=== PATIENT | female | born 1985 | race Caucasian/White ===

== ENCOUNTER 2019-05-26 07:05 | Emergency (ER) | payer OTHER ==
--- NOTE | 2019-05-26 08:17 | EDM.PDOC ---
ED HPI GENERAL MEDICAL PROBLEM - General Chief Complaint: Abdominal Pain Stated Complaint: TIGHTNESS IN ABDOMEN Time Seen by Provider: 05/26/19 07:35 Source of Information: Reports: Patient History Limitations: Reports: No Limitations - History of Present Illness INITIAL COMMENTS - FREE TEXT/NARRATIVE: The patient presents with tightness to the abdomen. This started about 0530 this morning. 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 She denies nausea, vomiting or diarrhea. She has no dysuria. She has a gastric sleeve. She has no fever, chills, cough, chest pain or shortness of breath. She still has her gallbladder and appendix. Onset: Gradual Duration: Hour(s): Location: Reports: Abdomen Quality: Reports: Other (tightness) Severity: Mild Improves with: Reports: None Worsens with: Reports: None Associated Symptoms: Reports: No Other Symptoms Middle Abdomen Pain Score (Numeric/FACES): 2 - Related Data Allergies Allergy/AdvReac Type Severity Reaction Status Date / Time diphenhydramine Allergy Hives Verified 05/26/19 07:34 [From Benadryl] Home Meds: Home Meds . [No Known Home Meds] 05/26/19 [History] Past Medical History HEENT History: Reports: Impaired Vision Other HEENT History: wears eyeglasses. 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 Musculoskeletal History: Reports: Fracture, Other (See Below) Other Musculoskeletal History: missing disc between L5-tailbone - Infectious Disease History Infectious Disease History: Reports: Chicken Pox - Past Surgical History HEENT Surgical History: Reports: Adenoidectomy, Tonsillectomy GI Surgical History: Reports: Bariatric Procedure Social & Family History - Tobacco Use Smoking Status *Q: Never Smoker Second Hand Smoke Exposure: No - Caffeine Use Caffeine Use: Reports: Coffee - Recreational Drug Use Recreational Drug Use: No ED ROS GENERAL - Review of Systems Review Of Systems: See Below Constitutional: Reports: No Symptoms HEENT: Reports: No Symptoms Respiratory: Reports: No Symptoms Cardiovascular: Reports: No Symptoms Endocrine: Reports: No Symptoms GI/Abdominal: Reports: Abdominal Pain. Denies: Diarrhea, Nausea, Vomiting : Reports: No Symptoms Musculoskeletal: Reports: No Symptoms ED EXAM, GI/ABD - Physical Exam Exam: See Below Exam Limited By: No Limitations General Appearance: Alert, No Apparent Distress Ears: Normal External Exam Nose: Normal Inspection Head: Atraumatic, Normocephalic Neck: Normal Inspection Respiratory/Chest: No Respiratory Distress, Lungs Clear, Normal Breath Sounds Cardiovascular: Regular Rate, Rhythm, No Edema, No Murmur GI/Abdominal Exam: Soft, No Organomegaly, No Mass, Tender (Mild tightness with palpation mostly in the left abdomen.) Course - Vital Signs Last Recorded V/S: Last Vital Signs Temp 97.4 F 05/26/19 07:36 Pulse 68 05/26/19 07:36 Resp 18 05/26/19 07:36 BP 132/76 05/26/19 07:36 Pulse Ox 100 05/26/19 07:36 - Orders/Labs/Meds Orders: Active Orders 24 hr Category Date Time Status Abdomen 2V AP Flat Upright [CR] Stat Exams 05/26/19 07:50 Taken Labs: Laboratory Tests 05/26/19 05/26/19 05/26/19 Range/Units 07:20 07:20 07:20 WBC 7.28 (3.98-10.04) K/mm3 RBC 4.72 (3.98-5.22) M/mm3 Hgb 10.9 L (11.2-15.7) gm/L Hct 36.9 (34.1-44.9) % MCV 78.2 L (79.4-94.8) fl MCH 23.1 L (25.6-32.2) pg MCHC 29.5 L (32.2-35.5) g/dl RDW Std Deviation 45.8 (36.4-46.3) fL Plt Count 393 H (182-369) K/mm3 MPV 9.9 (9.4-12.3) fl Neut % (Auto) 49.9 (34.0-71.1) % Lymph % (Auto) 40.5 (19.3-51.7) % [place] % (Auto) 8.1 (4.7-12.5) % Eos % (Auto) 1.1 (0.7-5.8) Baso % (Auto) 0.1 (0.1-1.2) % Neut # (Auto) 3.63 (1.56-6.13) K/mm3 Lymph # (Auto) 2.95 (1.18-3.74) K/mm3 [place] # (Auto) 0.59 H (0.24-0.36) K/mm3 Eos # (Auto) 0.08 (0.04-0.36) K/mm3 Baso # (Auto) 0.01 (0.01-0.08) K/mm3 Manual Slide Review Abnormal smear Sodium 140 (136-145) mEq/L Potassium 3.8 (3.5-5.1) mEq/L Chloride 105 (98-107) mEq/L Carbon Dioxide 25 (21-32) mEq/L Anion Gap 13.8 (5-15) BUN 10 (7-18) mg/dL Creatinine 0.7 (0.55-1.02) mg/dL Est Cr Clr Drug Dosing 120.58 mL/min Estimated GFR (MDRD) > 60 (>60) mL/min BUN/Creatinine Ratio 14.3 (14-18) Glucose 115 H (74-106) mg/dL Calcium 8.2 L (8.5-10.1) mg/dL Total Bilirubin 0.2 (0.2-1.0) mg/dL AST 18 (15-37) U/L ALT 17 (14-59) U/L Alkaline Phosphatase 53 (46-116) U/L Total Protein 7.1 (6.4-8.2) g/dl Albumin 3.6 (3.4-5.0) g/dl Globulin 3.5 gm/dL Albumin/Globulin Ratio 1.0 (1-2) Lipase 176 (73-393) U/L HCG, Qual Negative (NEGATIVE) Urine Color (Yellow) Urine Appearance (Clear) Urine pH (5.0-8.0) Ur Specific [place] (1.005-1.030) Urine Protein (Negative) Urine Glucose (UA) (Negative) Urine Ketones (Negative) Urine Occult Blood (Negative) Urine Nitrite (Negative) Urine Bilirubin (Negative) Urine Urobilinogen (0.2-1.0) Ur Leukocyte Esterase (Negative) Urine RBC (0-5) /hpf Urine WBC (0-5) /hpf Ur Epithelial Cells (0-5) /hpf Urine Bacteria (FEW) /hpf Urine Mucus (FEW) /hpf 05/26/19 Range/Units 07:55 WBC (3.98-10.04) K/mm3 RBC (3.98-5.22) M/mm3 Hgb (11.2-15.7) gm/L Hct (34.1-44.9) % MCV (79.4-94.8) fl MCH (25.6-32.2) pg MCHC (32.2-35.5) g/dl RDW Std Deviation (36.4-46.3) fL Plt Count (182-369) K/mm3 MPV (9.4-12.3) fl Neut % (Auto) (34.0-71.1) % Lymph % (Auto) (19.3-51.7) % [place] % (Auto) (4.7-12.5) % Eos % (Auto) (0.7-5.8) Baso % (Auto) (0.1-1.2) % Neut # (Auto) (1.56-6.13) K/mm3 Lymph # (Auto) (1.18-3.74) K/mm3 [place] # (Auto) (0.24-0.36) K/mm3 Eos # (Auto) (0.04-0.36) K/mm3 Baso # (Auto) (0.01-0.08) K/mm3 Manual Slide Review Sodium (136-145) mEq/L Potassium (3.5-5.1) mEq/L Chloride (98-107) mEq/L Carbon Dioxide (21-32) mEq/L Anion Gap (5-15) BUN (7-18) mg/dL Creatinine (0.55-1.02) mg/dL Est Cr Clr Drug Dosing mL/min Estimated GFR (MDRD) (>60) mL/min BUN/Creatinine Ratio (14-18) Glucose (74-106) mg/dL Calcium (8.5-10.1) mg/dL Total Bilirubin (0.2-1.0) mg/dL AST (15-37) U/L ALT (14-59) U/L Alkaline Phosphatase (46-116) U/L Total Protein (6.4-8.2) g/dl Albumin (3.4-5.0) g/dl Globulin gm/dL Albumin/Globulin Ratio (1-2) Lipase (73-393) U/L HCG, Qual (NEGATIVE) Urine Color Yellow (Yellow) Urine Appearance Clear (Clear) Urine pH 5.5 (5.0-8.0) Ur Specific [place] 1.025 (1.005-1.030) Urine Protein Negative (Negative) Urine Glucose (UA) Negative (Negative) Urine Ketones Negative (Negative) Urine Occult Blood 1+ H (Negative) Urine Nitrite Negative (Negative) Urine Bilirubin Negative (Negative) Urine Urobilinogen 0.2 (0.2-1.0) Ur Leukocyte Esterase Negative (Negative) Urine RBC 0-5 (0-5) /hpf Urine WBC 0-5 (0-5) /hpf Ur Epithelial Cells 0-5 (0-5) /hpf Urine Bacteria Few (FEW) /hpf Urine Mucus Moderate H (FEW) /hpf - Re-Assessments/Exams Free Text/Narrative Re-Assessment/Exam: 05/26/19 08:18 I ordered labs, UA and an x-ray of her abdomen and pelvis. 05/26/19 09:24 Her CBC and CMP look good. Her UA shows no UTI. Her x-ray shows moderate stool. Departure - Departure Time of Disposition: 09:30 Disposition: Home, Self-Care 01 Condition: Good Clinical Impression: Abdominal pain Qualifiers: Abdominal location: left upper quadrant Qualified Code(s): R10.12 - Left upper quadrant pain - Discharge Information *PRESCRIPTION DRUG MONITORING PROGRAM REVIEWED*: No *COPY OF PRESCRIPTION DRUG MONITORING REPORT IN PATIENT HUGH: No Referrals: PCP,None [Primary Care Provider] - Rossana Sanabria PA-C [Physician Gas Pipe Layer] - 1 Week Forms: ED Department Discharge Additional Instructions: Drink plenty of fluids. Try some mag citrate to help clean out. Please return if you are worse. - My Orders Last 24 Hours: My Active Orders 05/26/19 07:50 Abdomen 2V AP Flat Upright [CR] Stat - Assessment/Plan Last 24 Hours: My Active Orders 05/26/19 07:50 Abdomen 2V AP Flat Upright [CR] Stat
--- NOTE | 2019-05-26 12:05 | CR ---
Abdomen: Supine and upright views of the abdomen were obtained. Comparison: No previous study. Surgical clips and anastomotic sutures seen within the left upper abdomen. Mild increased stool within the transverse and right colon is seen. Bowel gas pattern is otherwise unremarkable. Calcifications are seen within the pelvis which are compatible with phleboliths. Bony structures show nothing acute. No free air is seen. Impression: 1. Previous abdominal surgery. Other findings which are believed to be incidental. 2. Nothing acute is seen. Diagnostic code #2
== END 2019-05-26 10:00 | disposition home or self-care (01) ==
LOC: JD.ED 07:05
DX: R10.12 Left upper quadrant pain (principal); Z88.8 Allergy status to other drugs, medicaments and biological substances
CPT/HCPCS: 36415; 74019; 74019-26; 80053; 81001; 83690; 84703; 85025; 99284-25

== ENCOUNTER 2019-11-03 05:09 | Emergency (ER) | payer OTHER ==
--- NOTE | 2019-11-03 05:53 | EDM.PDOC ---
ED HPI GENERAL MEDICAL PROBLEM - General Chief Complaint: Eye Problems Stated Complaint: vision loss and short of breath Time Seen by Provider: 11/03/19 05:15 Source of Information: Reports: Patient History Limitations: Reports: No Limitations - History of Present Illness INITIAL COMMENTS - FREE TEXT/NARRATIVE: Ms. Monet is a very pleasant 34-year-old woman with a past medical history significant for morbid obesity, status post a gastric sleeve, 2 spontaneous abortions, and untreated PTSD, who states that she was on her computer at work around 03:30, when she developed blurriness to her right eye. No eye pain. No flashing lights. About that time, she developed nausea, and vomited her breakfast. Around 04:40, she developed a central forehead headache, throbbing in character. No photophobia or phonophobia. No neurologic symptoms, such as tingling, numbness, or weakness. No prior similar symptoms. The patient notes that she was diagnosed with influenza B about 2 weeks ago, and treated with Tamiflu. Her symptoms resolved, but then about 3 days ago, she developed a dry cough which causes her to feel short of breath sometimes. Here in the ED, the patient is hemodynamically stable, with an oxygen saturation of 100% on room air. The patient does not have a PCP. Her Lead Oxide Mill Tender, whose name she does not recall, is in [place]. Throat Pain Score (Numeric/FACES): 3 - Related Data Allergies Allergy/AdvReac Type Severity Reaction Status Date / Time diphenhydramine Allergy Hives Verified 11/03/19 05:18 [From Benadryl] Home Meds: Home Meds . 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) : 2 Para: 0 Musculoskeletal History: Reports: Arthritis (right knee), Fracture (right fibula ) Psychiatric History: Reports: PTSD (untreated) Endocrine/Metabolic History: Reports: Obesity/BMI 30+ - Infectious Disease History Infectious Disease History: Reports: Chicken Pox - Past Surgical History HEENT Surgical History: Reports: Adenoidectomy, Oral Surgery (wisdom teeth extraction), Tonsillectomy GI Surgical History: Reports: Bariatric Procedure (gastric sleeve 2013) Social & Family History - Tobacco Use Smoking Status *Q: Never Smoker Second Hand Smoke Exposure: No - Caffeine Use Caffeine Use: Reports: Coffee - Alcohol Use Alcohol Use History: Yes Alcohol Use Frequency: Socially - Recreational Drug Use Recreational Drug Use: No - Living Situation & Occupation Living situation: Reports: , Alone 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 ED EXAM GENERAL W FULL EYE - Physical Exam Exam: See Below Exam Limited By: No Limitations General Appearance: Alert, WD/WN, No Apparent Distress Eye Exam: Bilateral Eye: EOMI, Normal Inspection, PERRL Visual Acuity (R) 20/: 40 Visual Acuity (L) 20/: 20 With Correction: Yes Eyelids: Bilateral: Normal Appearance Conjunctiva & Sclera: Bilateral: Normal Appearance Cornea Exam: Bilateral: Normal Appearance Extraocular Movements: Bilateral: Intact Pupils: Normal Accommodation Pupillary Size: Bilateral: 6 mm Pupillary Reaction: Bilateral: Brisk Anterior Chamber: Bilateral: Normal Appearance Ears: Normal External Exam, Normal Canal, Hearing Grossly Normal, Normal TMs Nose: Normal Inspection, Normal Mucosa, No Blood Throat/Mouth: Normal Inspection, Normal Lips, Normal Teeth, Normal Gums, Normal Oropharynx, Normal Voice, No Airway Compromise Head: Atraumatic, Normocephalic Neck: Normal Inspection, Supple, Non-Tender, Full Range of Motion. No: Lymphadenopathy (L), Lymphadenopathy (R) Respiratory/Chest: No Respiratory Distress, Lungs Clear, Normal Breath Sounds, No Accessory Muscle Use Cardiovascular: Normal Peripheral Pulses, Regular Rate, Rhythm, No Edema, No Gallop, No JVD, No Murmur, No Rub GI/Abdominal: Normal Bowel Sounds, Soft, Non-Tender, No Organomegaly, No Distention, No Abnormal Bruit, No Mass (Male) Exam: Deferred (Female) Exam: Deferred Rectal (Female) Exam: Deferred Back Exam: Normal Inspection, Full Range of Motion, NT Extremities: Normal Inspection, Normal Range of Motion, No Pedal Edema, Normal Capillary Refill Neurological: Alert, Oriented, Normal Cognition, Normal Gait, No Motor/Sensory Deficits Psychiatric: Normal Affect Skin Exam: Warm, Dry, Intact, Normal Color, No Rash Course - Vital Signs Last Recorded V/S: Last Vital Signs Temp 36.2 C 11/03/19 05:15 Pulse 80 11/03/19 05:15 Resp 24 H 11/03/19 05:15 BP 143/75 H 11/03/19 05:15 Pulse Ox 100 11/03/19 05:15 - Orders/Labs/Meds Orders: Active Orders 24 hr Category Date Time Status Accu Check [Blood Glucose Check, Bedside] [RC] ONETIME Care 11/03/19 06:13 Ordered CBC WITH MANUAL DIFF [HEME] Stat Lab 11/03/19 05:49 Ordered COMPREHENSIVE METABOLIC PN,CMP [CHEM] Stat Lab 11/03/19 05:49 Ordered INR,PT,PROTHROMBIN TIME [COAG] Stat Lab 11/03/19 05:50 Ordered PTT,PARTIAL THROMBOPLSTIN TIME [COAG] Stat Lab 11/03/19 05:50 Ordered Labs: Laboratory Tests 11/03/19 11/03/19 Range/Units 06:10 06:16 WBC 9.14 (3.98-10.04) K/mm3 RBC 4.85 (3.98-5.22) M/mm3 Hgb 11.3 (11.2-15.7) gm/dl Hct 37.8 (34.1-44.9) % MCV 77.9 L (79.4-94.8) fl MCH 23.3 L (25.6-32.2) pg MCHC 29.9 L (32.2-35.5) g/dl RDW Std Deviation 44.4 (36.4-46.3) fL Plt Count 399 H (182-369) K/mm3 MPV 10.3 (9.4-12.3) fl POC Glucose 89 (70-105) mg/dL Meds: Medications Discontinued Medications Generic Name Dose Route Start Last Admin Trade Name Freq PRN Reason Stop Dose Admin Alteplase, Recombinant Confirm 11/03/19 06:21 Activase Administered 11/03/19 06:22 Dose 100 mg .ROUTE .STK-MED ONE - Re-Assessments/Exams Free Text/Narrative Re-Assessment/Exam: 11/03/19 05:47 On confrontation visual field testing, the patient appears to have an incongruous homonymous hemianopia, worse on the right side and the left, but both involving the upper right quarter visual field. This is most concerning for a stroke, although the differential must include a migraine or even hyperventilation syndrome. An ocular problem itself, such as eye strain or retinal detachment, is not on the differential, as her visual loss involves both eyes. I have ordered a CT scan of her head without contrast, and will also order a CBC, CMP, and coags. 11/03/19 06:16 [facility] was contacted by our accounts adjustable clerk at 06:01. Case then discussed with Dr. Potts, Neurologist at [facility], at 06:05. Finding no contraindications, he recommended that we give IV tPA. No heparin. Case then discussed with Dr. Hugo, Emergency Physician at [facility] , at 06:13. He accepted the patient for transport to their ED. The patient will be flown by helicopter. 11/03/19 06:25 Our concerns about the patient having a stroke and the recommendation for tPA was discussed with the patient. The patient is agreeable to receive tPA, however , she asked if she could go home before going to [facility]. She states that she has dogs that need taking care of. I explained to the patient that that would not be medically feasible, that the patient would be flown to [place] by helicopter. The patient stated that there is no one who can take care of her dogs, therefore she is at this time refusing the tPA. We are attempting to impress upon her the timely need for treatment, as her window of opportunity for treatment is closing. 11/03/19 06:29 CT of the head without contrast is read by Dr. Mcmullen as: 1. Retention cyst within the right maxillary sinus. 2. Nothing acute is appreciated on noncontrast head CT exam. 11/03/19 06:34 Both Marychuy RN and Carlyn RN attempted to convince the patient the need to receive treatment, however, she did not budge. I then talked to the patient, imploring her to reconsider, however, she is adamant that she leave. We even offered to have a staff member go to her house and feed her dogs for her, but she is adamant that only she can take care of of her dogs. The patient will therefore be leaving AMA. 11/03/19 06:39 The patient signed her AMA form, but left the ED without waiting for her discharge paperwork. Departure - Departure Time of Disposition: 06:39 Disposition: Against Medical Advice 07 Condition: Good Clinical Impression: Stroke - Discharge Information *PRESCRIPTION DRUG MONITORING PROGRAM REVIEWED*: Not Applicable *COPY OF PRESCRIPTION DRUG MONITORING REPORT IN PATIENT HUGH: Not Applicable Referrals: PCP,None [Primary Care Provider] - Forms: ED Department Discharge Sepsis Event Note - Evaluation Sepsis Screening Result: No Definite Risk - Focused Exam Vital Signs: Vital Signs Temp Pulse Resp BP Pulse Ox 11/03/19 05:15 36.2 C 80 24 H 143/75 H 100 Date Exam was Performed: 11/03/19 Time Exam was Performed: 06:42 - My Orders Last 24 Hours: My Active Orders 11/03/19 05:49 CBC WITH MANUAL DIFF [HEME] Stat COMPREHENSIVE METABOLIC PN,CMP [CHEM] Stat 11/03/19 05:50 INR,PT,PROTHROMBIN TIME [COAG] Stat PTT,PARTIAL THROMBOPLSTIN TIME [COAG] Stat 11/03/19 06:13 Accu Check [Blood Glucose Check, Bedside] [RC] ONETIME - Assessment/Plan Last 24 Hours: My Active Orders 11/03/19 05:49 CBC WITH MANUAL DIFF [HEME] Stat COMPREHENSIVE METABOLIC PN,CMP [CHEM] Stat 11/03/19 05:50 INR,PT,PROTHROMBIN TIME [COAG] Stat PTT,PARTIAL THROMBOPLSTIN TIME [COAG] Stat 11/03/19 06:13 Accu Check [Blood Glucose Check, Bedside] [RC] ONETIME
--- NOTE | 2019-11-03 06:27 | CT ---
Head CT Technique: Multiple axial sections through the brain were obtained. Intravenous contrast was not utilized. Comparison: No prior intracranial imaging is available. Findings: Large retention cyst measuring 2.3 cm is seen within the right maxillary sinus. Ventricles along with basal cisterns and sulci over the convexities appear within normal limits for the patient's age. No abnormal parenchymal densities are seen. No evidence of intracranial hemorrhage. No midline shift or mass-effect is seen. Bone window settings were reviewed. No acute calvarial abnormality is seen. Visualized mastoid sinuses show nothing acute. Right and left globes are symmetric. No retrobulbar abnormality is seen. Impression: 1. Retention cyst within the right maxillary sinus. 2. Nothing acute is appreciated on noncontrast head CT exam. Diagnostic code #2 This report was dictated in [place] Standard Time
== END 2019-11-03 06:45 | disposition left against medical advice (07) ==
LOC: JD.ED 05:09
DX: I63.9 Cerebral infarction, unspecified (principal); E66.01 Morbid (severe) obesity due to excess calories; Z88.8 Allergy status to other drugs, medicaments and biological substances; Z98.890 Other specified postprocedural states; Z98.84 Bariatric surgery status
CPT/HCPCS: 36415; 70450; 70450-26; 80053; 82962; 85007; 85027; 85610; 85730; 99283; 99285-25

== ENCOUNTER 2019-11-03 07:07 | Emergency (ER) | payer OTHER ==
[2019-11-03] MEDS ORDERED: FLU Vacc QS2019-20(6MOS+)/PF 60 MCG/0.5 ML SYRINGE IM ONE (07:45)
--- NOTE | 2019-11-03 07:49 | EDM.PDOC ---
ED HPI GENERAL MEDICAL PROBLEM - General Chief Complaint: Neurological Problem Stated Complaint: PT STS SHE IS POSSIBLY HAVING A STROKE Time Seen by Provider: 11/03/19 07:13 Source of Information: Reports: Patient, RN Notes Reviewed - History of Present Illness INITIAL COMMENTS - FREE TEXT/NARRATIVE: 34-year-old female returns to ED having been just evaluated here in the ED about 90 minutes ago for Turner, vision problems, loss of vision upper and lateral visual ballard. She had onset of these symptoms about 3 one half hours ago at work She states the headache did come first and then the blurriness and what she felt was loss of vision especially right eye. Her headache has been frontal with mild throbbing. There's been no nausea or vomiting. she has had cough for several days, intermittent low-grade fever with that. 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 Drawn concern for stroke and after consulting with neurology decision was made to recommend TPA. However patient did refuse that, stated she needed to go home, take care of her dogs and did sign out AMA. See that prior record for further details of that visit. she was advised by friends, family or coworkers to return to the ED for further treatment and she does do that willingly at this time. She states that the blurriness of her vision is actually now better. She still does continue to have moderate frontal headache. With regards to her cough she states that she was diagnosed with influenza couple of weeks ago was quite ill, got better and having cough with possible low-grade fever again about 3 days ago. She does have mild nasal and sinus congestion at this time. Cough is mainly nonproductive. Headache Pain Score (Numeric/FACES): 6 - Related Data Allergies Allergy/AdvReac Type Severity Reaction Status Date / Time diphenhydramine Allergy Hives Verified 11/03/19 07:14 [From Benadryl] Home Meds: Home Meds . [No Known Home Meds] 05/26/19 [History] Past Medical History HEENT History: Reports: Impaired Vision Other HEENT History: wears eyeglasses Cardiovascular History: Reports: Heart Murmur Respiratory History: Reports: Other (See Below) Other Respiratory History: recent cough due to +) influenza. 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 History: Reports: , Spontaneous Musculoskeletal History: Reports: Arthritis, Fracture Other Musculoskeletal History: missing disc between L5-tailbone Psychiatric History: Reports: PTSD Endocrine/Metabolic History: Reports: Obesity/BMI 30+ - Infectious Disease History Infectious Disease History: Reports: Chicken Pox - Past Surgical History HEENT Surgical History: Reports: Adenoidectomy, Oral Surgery, Tonsillectomy GI Surgical History: Reports: Bariatric Procedure Social & Family History - Tobacco Use Smoking Status *Q: Never Smoker Second Hand Smoke Exposure: No - Caffeine Use Caffeine Use: Reports: Coffee - Recreational Drug Use Recreational Drug Use: No - Living Situation & Occupation Living situation: Reports: , Alone 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 Denies: Ear Pain, Sinus Problem, Throat Pain Respiratory: Denies: Shortness of Breath Cardiovascular: Denies: Chest Pain GI/Abdominal: Denies: Abdominal Pain, Nausea, Vomiting ED EXAM, NEURO - Physical Exam Exam: See Below General Appearance: Alert, Anxious, Moderate Distress Eye Exam: Bilateral Eye: PERRL Ears: Normal External Exam, Normal Canal Nose: Normal Inspection Throat/Mouth: Normal Inspection, Normal Oropharynx Head Exam: Atraumatic, Other (Visual field testing normal at time of my exam shortly after patient arrival for 2nd visit). No: Facial Swelling Neck: Supple, Full Range of Motion Respiratory/Chest: No Respiratory Distress, Lungs Clear, Normal Breath Sounds Cardiovascular: Tachycardia Neurological: Alert, No Motor/Sensory Deficits, Oriented x 3, Other (Finger to nose testing nl) Extremities: Normal Inspection, Normal Range of Motion Skin Exam: Warm, Dry, Normal Color Course - Vital Signs Last Recorded V/S: Last Vital Signs Temp 98.7 F 11/03/19 11:58 Pulse 78 11/03/19 11:58 Resp 16 11/03/19 11:58 BP 120/50 L 11/03/19 11:58 Pulse Ox 97 11/03/19 11:58 - Orders/Labs/Meds Meds: Medications Discontinued Medications Generic Name Dose Route Start Last Admin Trade Name Freq PRN Reason Stop Dose Admin Acetaminophen 975 mg 11/03/19 07:51 11/03/19 07:55 Tylenol PO 11/03/19 07:52 975 mg NOW ONE Administration Acetaminophen 975 mg 11/03/19 10:57 11/03/19 08:00 Tylenol PO 11/03/19 10:58 Not Given NOW ONE Gadobenate Dimeglumine 20 ml 11/03/19 08:08 11/03/19 08:50 Multihance IVPUSH 11/03/19 08:09 20 ml ONETIME ONE Administration Sodium Chloride 1,000 mls @ 999 mls/hr 11/03/19 11:00 11/03/19 12:08 Normal Saline IV 999 mls/hr ONETIME SHERIN Administration Influenza Virus Vaccine 60 mcg 11/03/19 07:45 11/03/19 07:56 Fluzone Quad Syringe IM 11/03/19 07:46 Not Given .ONCE ONE Ketorolac Tromethamine 30 mg 11/03/19 11:00 11/03/19 12:07 Toradol IVPUSH 30 mg ONETIME SHERIN Administration Labetalol HCl 20 mg 11/03/19 13:42 Normodyne IVPUSH 11/03/19 13:43 ONETIME ONE Protocol Metoclopramide HCl 5 mg 11/03/19 10:57 11/03/19 12:05 Reglan IVPUSH 11/03/19 10:58 5 mg ONETIME ONE Administration Sodium Chloride 30 ml 11/03/19 08:15 11/03/19 08:50 Saline Flush FLUSH 30 ml ASDIRECTED SHERIN Administration - Re-Assessments/Exams Free Text/Narrative Re-Assessment/Exam: 11/03/19 08:44. last known well 3:30 a.m. 3-1/2 hours prior to this return visit. On exam now she does not have a demonstrable visual field deficits. Her neuro exam for upper and lower extremities, extraocular eye motion pupil reactivity is all negative. No facial droop, speech is clear, finger to nose testing without difficulty and very normal. We have checked with MRI and they are able to get her in for MRI of the brain and MRA neck and head so those tests have been ordered. Record of prior visit hour and a half ago has been reviewed as well as lab work done at that time which was all essentially normal. 11/03/19 12:59. have given meds, IV fluid for the headache, she feels better, continues to have no neuro symptoms at this time. Discharge instructions as documented. Departure - Departure Time of Disposition: 12:59 Disposition: Home, Self-Care 01 Condition: Fair Clinical Impression: Vision changes Migraine Qualifiers: Migraine type: ophthalmoplegic - Discharge Information Instructions: Migraine Headache, [id number] Referrals: PCP,None [Primary Care Provider] - Forms: ED Department Discharge, ED Return to Work/School Form Additional Instructions: Rest, continue to drink plenty of water to maintain hydration. Tylenol and ibuprofen or Aleve as needed for further headache.Off for tonight, resume work tomorrow evening as tolerated. Follow-up with your eye doctor if continuing to have any further vision difficulties, return to ED if symptoms worsening in any way. Sepsis Event Note - Evaluation Sepsis Screening Result: No Definite Risk - Focused Exam Date Exam was Performed: 11/09/19 Time Exam was Performed: 09:52
[2019-11-03] MEDS ORDERED: Acetaminophen 325 MG Tab PO ONE ×2 (07:51→10:57)
[2019-11-03] MEDS ORDERED: Albuterol/Ipratropium 3.0-0.5 MG/3 ML Neb Soln NEB ONE (07:58)
[2019-11-03] MEDS ORDERED: Gadobenate Dimeglumine 529 MG/ML 20 ML SDV IVPUSH ONE (08:08)
[2019-11-03] MEDS ORDERED: Sodium Chloride 0.9% 10 ML Syringe FLUSH SCH (08:15)
--- NOTE | 2019-11-03 08:54 | MR ---
MRI angiogram of brain Technique: [id number] MRA angiogram study was obtained centered to the [place]. Multiple MIP images were obtained in multiple projections. Findings: Retention cyst is noted within the inferior right maxillary sinus. Distal internal carotid arteries and basilar artery are patent. Anterior, middle and posterior cerebral arteries also appear patent. No focal areas of occlusion or stenosis is appreciated. No discrete aneurysm is appreciated. Impression: 1. No abnormality is identified on MR angiogram of the brain centered to the [place]. 2. 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 Diagnostic code #2 Study was dictated in [place] Standard Time
--- NOTE | 2019-11-03 09:47 | MR ---
MRI brain (without and with intravenous contrast) Technique: T1 sagittal; T2, T2 FLAIR, T1 and diffusion axial; T1 and T2 gradient echo coronal; post contrast T1 axial and post contrast T1 FLAIR coronal images were obtained. Comparison: Prior head CT study performed earlier on the same day (5:55 AM). Findings: Ventricles along with basal cisterns and sulci over the convexities are within normal limits for the patient's age. Retention cyst is again noted within the inferior right maxillary sinus. No abnormal signal is seen within the brain parenchyma. No midline shift or mass effect is seen. No acute diffusion abnormalities are seen. No abnormal areas of enhancement are seen. Impression: 1. Retention cyst within the right maxillary sinus again noted. 2. No abnormality is appreciated on MRI study of the brain. Diagnostic code #2 Study was dictated in [place] Standard Time
--- NOTE | 2019-11-03 09:47 | MR ---
MR angiogram of neck Technique: Postcontrast MR angiogram study was obtained of the neck. Multiple MIP images were obtained. Findings: Common carotid arteries are normal. Internal and external carotid arteries are normal. No focal stenosis or occlusion is seen. Both vertebral arteries are patent. Impression: 1. No abnormality is identified on MRI angiogram of the neck. Diagnostic code #1 Study was dictated in [place] Standard Time
[2019-11-03] MEDS ORDERED: Metoclopramide 10 MG/2 ML SDV IVPUSH ONE (10:57)
[2019-11-03] MEDS ORDERED: Sodium Chloride 0.9% 1,000 ML IV SCH (11:00)
[2019-11-03] MEDS ORDERED: Ketorolac 30 MG/ML SDV IVPUSH SCH (11:00)
[2019-11-03] MEDS ORDERED: Labetalol 100 MG/20 ML MDV IVPUSH ONE (13:42)
== END 2019-11-03 13:29 | disposition home or self-care (01) ==
LOC: JD.ED 07:07
DX: G43.B0 Ophthalmoplegic migraine, not intractable (principal); H53.8 Other visual disturbances; M19.90 Unspecified osteoarthritis, unspecified site; E66.9 Obesity, unspecified; Z68.41 Body mass index [BMI] 40.0-44.9, adult; Z88.8 Allergy status to other drugs, medicaments and biological substances
CPT/HCPCS: 70544; 70548; 70553; 96361; 96374; 99284; A9270; A9577; J1885; J2765; J7030; 99283